=== PATIENT | male | born 1995 | race African-American/Black ===

== ENCOUNTER 2018-09-21 01:50 | Emergency (ER) | payer MEDICAID ==
[~2018-09-21] VITALS: Ht 170.2 cm; Wt 81.0 kg
[2018-09-21] MEDS ORDERED: ALBUTEROL (0.083%) 2.5MG/3ML NEB HHN STA (06:32)
[2018-09-21] MEDS ORDERED: IPRATROPIUM BROMIDE (0.02%) 0.5MG/2.5ML NEB HHN STA (06:32)
[2018-09-21] MEDS ORDERED: PREDNISONE 20MG TABLET PO ONE (06:45)
[2018-09-21 08:00] VITALS: BP 120/78
== END 2018-09-21 08:01 | disposition home or self-care (01) ==
LOC: ER 02:24
DX: J45.901 Unspecified asthma with (acute) exacerbation (principal); F17.210 Nicotine dependence, cigarettes, uncomplicated
CPT/HCPCS: 94640; 99284; J7512; J7611

== ENCOUNTER 2018-09-23 00:14 | Emergency (ER) | payer MEDICAID | END 2018-09-23 02:18 | disposition left against medical advice (07) | LOC: ER 00:14 | DX: Z53.21 Procedure and treatment not carried out due to patient leaving prior to being seen by health care provider (principal) ==

== ENCOUNTER 2018-09-27 19:09 | Emergency (ER) | payer MEDICAID ==
[~2018-09-27] VITALS: Ht 167.6 cm; Wt 69.0 kg
[2018-09-27 19:12] VITALS: BP 103/65
== END 2018-09-28 00:34 | disposition left against medical advice (07) ==
LOC: ER 19:09
DX: Z53.21 Procedure and treatment not carried out due to patient leaving prior to being seen by health care provider (principal)
CPT/HCPCS: 93005

== ENCOUNTER 2018-09-28 02:14 | Emergency (ER) | payer MEDICAID ==
[~2018-09-28] VITALS: Ht 167.6 cm; Wt 69.0 kg
[2018-09-28 02:19] VITALS: BP 135/66
[2018-09-28] MEDS ORDERED: IPRATROPIUM BROMIDE (0.02%) 0.5MG/2.5ML NEB HHN STA (06:51)
[2018-09-28] MEDS ORDERED: METHYLPREDNISOLONE SOD SUCC 125 MG/2 ML VIAL IM STA (06:51)
[2018-09-28] MEDS ORDERED: ALBUTEROL (0.083%) 2.5MG/3ML NEB HHN STA (06:51)
[2018-09-28 07:10] LABS: BASOPHILS % 1.1 % (0.0-2.0); EOSINOPHILS % 4.5 % (0.0-5.0); HEMATOCRIT. 45.5 % (42.0-52.0); MEAN CORPUSCULAR HEMOGLOBIN 28.9 pg (28.0-32.0); MEAN CORPUSCULAR VOLUME 87.6 fL (80.0-94.0); MEAN PLATELET VOLUME 8.1 fl (7.4-10.4); MONOCYTES % 6.7 % (2.0-8.0); NEUTROPHILS % 75.7 % (40.0-76.0); PLATELET 427 x1000/uL (130-400)
[2018-09-28 07:12] LABS: CHLORIDE 107 mEq/L (98-107)
[2018-09-28] MEDS ORDERED: AZITHROMYCIN 500 MG TABLET PO ONE (07:30)
== END 2018-09-28 10:21 | disposition home or self-care (01) ==
LOC: ER 02:14
DX: J45.901 Unspecified asthma with (acute) exacerbation (principal); J06.9 Acute upper respiratory infection, unspecified; F99 Mental disorder, not otherwise specified
CPT/HCPCS: 36415; 71045; 80048; 85025; 94640; 96372; 99284; J2930; J7611; Z7610